=== PATIENT | female | born 2000 | race Caucasian/White ===

== ENCOUNTER 2023-01-05 11:21 | Inpatient (IN) | payer BC ==
[~2023-01-05] VITALS: Ht 170.2 cm; Wt 78.7 kg
--- NOTE | 2023-01-05 12:06 | NUR ---
PT MOVED FROM ROOM 18 IN ER TO ROOM 20 IN EROF AREA.
--- NOTE | 2023-01-05 12:07 | NUR ---
Patient brought back to bed 20. Patient appears to be in mild distress. Father at bedside. Patient seems resistent to care.
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
--- NOTE | 2023-01-05 12:40 | NUR ---
[facility]IARA REQUESTED MED RECORDS ON PATIENT FROM [place]
[2023-01-05] MEDS ORDERED: OLAN5TAB75 PO (13:12)
[2023-01-05 13:58] LABS: BILIRUBIN,URINE NEGATIVE (Neg); CLARITY,URINE CLEAR (Clear); COLOR,URINE STRAW (Yellow); GLUCOSE, URINE NEGATIVE (Neg); KETONES,URINE NEGATIVE (Neg); LEUKOCYTE ESTERASE ,URINE NEGATIVE (Neg); NITRITES, URINE NEGATIVE (Neg); OCCULT BLOOD,URINE NEGATIVE (Neg); PH,URINE 5.5 (4.8-8.0); PROTEIN,URINE NEGATIVE (Neg); UROBILINOGEN,URINE 0.2 E.U/dL (0.2-1.0)
[2023-01-05 13:58] LABS: BASOPHILS # (AUTO) 0.1 X10'3 (0-0.2); EOSINOPHILS # (AUTO) 0.1 X10'3 (0-0.9); EOSINOPHILS % (AUTO) 0.8 % (0-6); HEMATOCRIT 41.2 % (35.0-45.0); HEMOGLOBIN 14.2 g/dl (12.0-16.0); LYMPHOCYTES # (AUTO) 1.9 X10'3 (1.1-4.8); MEAN CORPUSCULAR HEMOGLOBIN 32.3 PG (27.0-31.0); MEAN CORPUSCULAR HGB CONC 34.5 g/dL (33.0-36.5); MEAN CORPUSCULAR VOLUME 93.4 FL (78-98); MEAN PLATELET VOLUME 9.1 FL (7.4-10.4); MONOCYTES # (AUTO) 0.8 X10'3 (0-0.9); MONOCYTES % (AUTO) 8.7 % (2-12); NEUTROPHILS # (AUTO) 6.6 X10'3 (1.8-7.7); NEUTROPHILS % (AUTO) 69.5 % (42-75); PLATELET COUNT 267 X10'3 (140-440); RED BLOOD COUNT 4.41 X10'6 (4.20-5.60); RED CELL DISTRIBUTION WIDTH 12.2 % (11.5-14.5); WHITE BLOOD COUNT 9.5 X10'3 (4.5-11.0)
[2023-01-05 13:59] LABS: UA COLLECTION TYPE VOIDED
[2023-01-05 14:02] LABS: URINE HCG NEGATIVE (NEG)
[2023-01-05 14:28] LABS: ALANINE AMINOTRANSFERASE 17 U/L (12-78); ALBUMIN 3.9 G/DL (3.4-5.0); ALBUMIN/GLOBULIN RATIO 1.1 (1.1-1.5); ALKALINE PHOSPHATASE 58 IU/L (20-180); ANION GAP 11 (8-16); ASPARTATE AMINO TRANSFERASE 18 U/L (10-37); BILIRUBIN,TOTAL 0.5 MG/DL (0.1-1.0); BLOOD UREA NITROGEN 10 MG/DL (7-18); BUN/CREATININE RATIO 15.6 (10.0-20.0); CHLORIDE 103 MMOL/L (99-107); CREATININE 0.64 MG/DL (0.40-0.90); ETHANOL < 10 MG/DL (<10); GLUCOSE 88 MG/DL (70-104); POTASSIUM 3.5 MMOL/L (3.5-5.1); SODIUM 141 MMOL/L (135-145); THYROID STIMULATING HORMONE 2.38 ulU/ml (0.34-4.50); TOTAL CARBON DIOXIDE 27.5 MMOL/L (24-32); TOTAL PROTEIN 7.5 G/DL (6.4-8.2); eCRCL 136 ML/MIN; eGFR > 90 ML/MIN
[2023-01-05 14:43] LABS: URINE AMPHETAMINE SCREEN NEGATIVE (Neg); URINE BARBITUATE SCREEN NEGATIVE (Neg); URINE BENZODIAZEPINES SCREEN NEGATIVE (Neg); URINE CANNABINOID SCREEN NEGATIVE (Neg); URINE COCAINE SCREEN NEGATIVE (Neg); URINE METHADONE SCREEN NEGATIVE (Neg); URINE OPIATE SCREEN NEGATIVE (Neg); URINE PHENCYCLIDINE SCREEN NEGATIVE (Neg)
--- NOTE | 2023-01-05 15:14 | NUR ---
Patient has an older woman visiting her that she calls a friend. Patient is crying and telling her story to her. Woman seems to be attempting to comfort patient.
--- NOTE | 2023-01-05 15:37 | NUR ---
Friend left bedside, patient seems like she needed to talk to a female. [facility] here to evaluate patient.
--- NOTE | 2023-01-05 16:26 | NUR ---
Patient placed on 5150 by [facility]. Patient very unhappy with news. Dad at bedside.
--- NOTE | 2023-01-05 17:51 | NUR ---
Patient's mom at bedside. Dad sitting in hallway, teary eyed. He states that he blames himself for everything, and questioning everything he did raising her. When he saw her with that razor blade today, he just knew he could not watch her 24 hours a day and needed assistance. Reassurance given that he did the right thing bring her here.
--- NOTE | 2023-01-05 19:32 | NUR ---
Mom and dad at bedside, pt requested several hygiene items. Pt became tearful with parents and is currently resting in her bed.
[2023-01-05] MEDS ORDERED: Melatonin 3mg tablet PO SCH (20:20)
[2023-01-05] MEDS: OLANZAPINE 5 MG TABLET PO SCH (20:23)
--- NOTE | 2023-01-05 20:33 | NUR ---
Dad: Blaze: Mom: Shantal: [phone]
--- NOTE | 2023-01-05 20:37 | NUR ---
Pt family has left. Pt is visibly upset d/t the curtain needing to stay open. States she is worried "about people watching me sleep".
--- NOTE | 2023-01-05 22:00 | NUR ---
Pt sleeping appears to be sleeping
--- NOTE | 2023-01-06 00:15 | NUR ---
Pt appears to be sleeping
--- NOTE | 2023-01-06 01:56 | NUR ---
Pt appears to be sleeping
--- NOTE | 2023-01-06 05:07 | NUR ---
Pt appears to be sleeping.
--- NOTE | 2023-01-06 06:44 | NUR ---
Patient sleeping on her left side. No distress observed. Continue to monitor.
--- NOTE | 2023-01-06 08:10 | NUR ---
Patient ambulatory to BR, Steady gait. Patient's breakfast at bedside. Continue to monitor.
--- NOTE | 2023-01-06 08:40 | NUR ---
RN spoke to patient 1:1. Patient states she is feeling better and denies suicidal ideation. Patient states she is no longer hearing voices but did take some Zyprexa last night. Patient states she is embarrassed on how she acted yesterday and she was glad there was a new nurse. Patient is calm and smiling. No distress noted at this time. Patient did eat most of her breakfast. Continue to monitor.
--- NOTE | 2023-01-06 09:28 | NUR ---
Mom visiting at bedside. Patient and mom chatting. No distress observed. Continue to monitor.
--- NOTE | 2023-01-06 10:21 | NUR ---
Note adiscarlos in ED - 01/06/23 at 1108 by PORFIRIO Kenny LIU, evaluating patient. No distress observed. Continue to monitor.
[2023-01-06 11:59] VITALS: BP 107/74; PULSE 74; RESP 16; TEMP 96.2; O2SAT 100
--- NOTE | 2023-01-06 12:28 | NUR ---
Admit note: [facility] 5150 for DTS from our ER at 1130. Karon has decompensated off her medications hallucinating, not eating or drinking without parental support, punching herself in the head, legs, and chest and cutting self. Client noted feeling unworthy and desire to . Pt has history of bipolar.
[2023-01-06] MEDS ORDERED: magnesium hydroxide 30ml (MOM) UD suspension PO PRN (12:35)
[2023-01-06] MEDS ORDERED: mag hydrox/Alum hydrox/simeth 30ml oral suspension PO PRN (12:35)
[2023-01-06] MEDS ORDERED: loperamide 2mg capsule PO PRN (12:35)
[2023-01-06] MEDS ORDERED: acetaminophen 325mg tablet PO PRN ×2 (12:35)
[2023-01-06 18:30] VITALS: RESP 16; O2SAT 100
[2023-01-06 19:18] VITALS: BP 105/79; PULSE 73; RESP 16; TEMP 98.9; O2SAT 98
[2023-01-06] MEDS: Melatonin 3mg tablet PO SCH (20:28)
[2023-01-06] MEDS: OLANZAPINE 5 MG TABLET PO SCH (20:28)
--- NOTE | 2023-01-06 22:04 | NUR ---
Nursing Progress Note Problem: Pt admitted to [facility] today on a 5150 for DTS from our ER at 1130. Karon has decompensated off her medications hallucinating, not eating or drinking without parental support, punching herself in the head, legs, and chest and cutting self. Client noted feeling unworthy and desire to . Pt has history of bipolar Interventions: Introduced self and established rapport, maintained a safe and supportive environment, ensured contract for safety, provided clear and simple instructions, provided active listening and positive encouragement, encouraged pt. to perform ADLs, and maintained Q 15min safety checks. Response: Pt was reading a book in her room at change of shift. Pt is pleasant and cooperate, reports she was feeling like herself when she was at her apartment. Pt denies s/i and is able to contract for safety. Pt asked about having snacks and then declined to have them. Pt was encouraged to eat but declined. Pt had some concerns about having a roommate and worried she wouldnt be able to sleep. Pt was given HS meds and advised to let us know if she was having trouble sleeping and we would check on her during the evening. Pt took HS meds and went to sleep. Plan: Interruption of current crisis, medication adjustments for stabilization in a safe and supportive environment.
[2023-01-07 07:55] VITALS: BP 97/59; PULSE 94; RESP 18; TEMP 98; O2SAT 100
[2023-01-07] MEDS ORDERED: olanzapine 10mg tablet PO PRN (14:50)
[2023-01-07] MEDS ORDERED: OLANZAPINE 5 MG TABLET PO PRN (14:50)
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
[2023-01-07 18:43] VITALS: RESP 18; O2SAT 100
[2023-01-07 19:56] VITALS: BP 90/67; PULSE 68; RESP 16; TEMP 98; O2SAT 99
[2023-01-07] MEDS: Melatonin 3mg tablet PO SCH ×2 (20:03→20:30)
[2023-01-07] MEDS: olanzapine 10mg tablet PO SCH (20:05)
--- NOTE | 2023-01-07 21:37 | NUR ---
NURSING PROGRESS NOTE Problem: Pt admitted to [facility] today on a 5150 for DTS from our ER at 1130. Karon has decompensated off her medications hallucinating, not eating or drinking without parental support, punching herself in the head, legs, and chest and cutting self. Client noted feeling unworthy and desire to . Pt has history of bipolar. Interventions: Introduced self and established rapport, maintained a safe and supportive environment, ensured contract for safety, provided clear and simple instructions, provided active listening and positive encouragement, encouraged pt. to perform ADLs, and maintained Q 15min safety checks. Response:Pt was in her room reading at change of shift. Pt moved to the group room to read and c/o her room crying. "Is this going to go on all night?" pt was assured we would accommodate her if necessary. Pt was able to return to her room a short time later. Pt denies s/i. Pt took increased dose of zyprexa tonight. Pt reports the doctor was going to stop her melatonin so she declined to take her melatonin. Pt had snacks and went to bed. pt reports she slept will the night before. Plan: Interruption of current crisis, medication adjustments for stabilization in a safe and supportive environment.
[2023-01-08 07:06] VITALS: BP 100/52; PULSE 100; RESP 17; TEMP 97.9; O2SAT 98
[2023-01-08] MEDS ORDERED: OLAN10TA73 PO ×2 (17:05→17:11)
--- NOTE | 2023-01-08 17:09 | NUR ---
NURSING PROGRESS NOTE Problem: Pt admitted to [facility] today on a 5150 for DTS from our ER at 1130. Karon has decompensated off her medications hallucinating, not eating or drinking without parental support, punching herself in the head, legs, and chest and cutting self. Client noted feeling unworthy and desire to . Pt has history of bipolar. Interventions: Introduced self and established rapport, maintained a safe and supportive environment, ensured contract for safety, provided clear and simple instructions, provided active listening and positive encouragement, encouraged pt. to perform ADLs, and maintained Q 15min safety checks. Response: Received patient sleeping at shift change. Pt woke shortly after and sat in her room and read. Pt presents linear in thought. Pt denies all psychotic symptoms. Pt is visible on the unit, isolates to self. Pt's 5150 is up today. Will possibly discharge. Plan: Interruption of current crisis, medication adjustments for stabilization in a safe and supportive environment.
[2023-01-08 18:58] VITALS: RESP 17; O2SAT 98
[2023-01-08 19:22] VITALS: BP 133/74; PULSE 70; RESP 18; TEMP 97.8; O2SAT 99
[2023-01-08] MEDS: Melatonin 3mg tablet PO SCH (21:00)
[2023-01-08] MEDS: olanzapine 10mg tablet PO SCH (21:00)
--- NOTE | 2023-01-08 21:15 | NUR ---
NURSING PROGRESS NOTE Problem: Pt admitted to [facility] today on a 5150 for DTS from our ER at 1130. Karon has decompensated off her medications hallucinating, not eating or drinking without parental support, punching herself in the head, legs, and chest and cutting self. Client noted feeling unworthy and desire to . Pt has history of bipolar. Interventions: Introduced self and established rapport, maintained a safe and supportive environment, ensured contract for safety, provided clear and simple instructions, provided active listening and positive encouragement, encouraged pt. to perform ADLs, and maintained Q 15min safety checks. Response: Pt sitting in bed at change of shift. Pt states she is happy to be going home and looking forward to discharge. Pt denies s/i. Pt spent early evening reading and waiting for dad to arrive to pick her up. Discharge paperwork completed vitals WNL. Pt discharged at 1999. Plan: Interruption of current crisis, medication adjustments for stabilization in a safe and supportive environment.
== END 2023-01-08 20:35 | disposition home or self-care (01) | DRG 885 ==
LOC: ER 11:22 → ED HOLD 01-06 09:20 → ADULT MH 01-06 11:25
PROVIDERS: ADMIT Psychiatry & Neurology Psychiatry; ATTEND Psychiatry & Neurology Psychiatry
DX: F23 Brief psychotic disorder (principal); R45.851 Suicidal ideations; Z20.822 Contact with and (suspected) exposure to COVID-19; F12.10 Cannabis abuse, uncomplicated; F10.10 Alcohol abuse, uncomplicated; Z81.8 Family history of other mental and behavioral disorders; Z79.899 Other long term (current) drug therapy; Z82.49 Family history of ischemic heart disease and other diseases of the circulatory system
CPT/HCPCS: 36415; 80053; 80305; 80320; 81003; 81025; 83036; 83721; 84443; 85025; 87081; 87811; 99285